=== PATIENT | female | born 1930 | race Caucasian/White ===

== ENCOUNTER 2016-12-22 10:25 | Observation (INO) | payer MEDICARE, BC ==
[~2016-12-22] VITALS: Ht 157.5 cm; Wt 60.4 kg
[~2016-12-22 10:25] MED LIST: ALDACTONE 25MG25 M1 PO; AMBIEN 5MG TABLE5 MG PO; APRESOLINE 25MG25 MG PO; ASPIRIN E.C. 8181 MG PO; ASTELIN137 MCG/AC NS; BACTRIM DS 8001 TAB; CALTRATE 600 +1 TAB PO; CENTRUM SILVER1 TA1 PO; CEPHALEXIN500 M1 PO; COUMADIN 2MG2 MG/TAB; COZAAR 50MG50 MG/TAB PO; COZAAR100 MG PO; COZAAR50 MG PO; CRANBERRY450 MG PO; DOXYCYCLINE 10100 MG PO; DULERA1 AR1 IH; EPA FISH OIL1000 MG PO; FISH OIL 500 M1 EAC1 PO; FLOVENT 110MCG7.9 GM IH; HCTZ 25MG TAB25 MG; HCTZ 25MG TAB25 MG PO; LIPITOR 10MG10 MG PO; LIPITOR20 MG PO; LUNESTA2 MG PO; MACROBID 1100 MG/CAP; MAXIPIME1 GM IV; MULTAQ400 MG PO; NAPROSYN500 MG PO; NITROQUICK0.4 MG SL; NITROSTAT0.4 MG/TAB SL; NORCO 325 MG-7.1 TAB PO; OMEGA 31000 MG PO; OMNICEF 300MG300 MG PO; PRESERVISION1 SGL PO; PRILOSEC 20MG20 MG PO; PROAIR HFA0.09 MG/AC IH; PULMICORT180 MCG/A1 IH; PULMICORT180 MCG/Ac IH; SYNTHROID0.088 MG PO; SYNTHROID0.088 MG/T PO; SYNTHROID0.1 MG/TAB PO; SYSTANE 0.4%-0.1 SOL OP; SYSTANE LUBRICAN5 ML OU; TAMBOCOR50 MG PO; TYLENOL 325MG325 MG PO; ULTRAM 50MG TAB50 MG PO; VENTOLIN0.09 MG IH; VIACTIV CALCIUM1 CTB PO; VITAMIN D1000 IU PO; VITAMIN D31000 IU PO; VITAMIN D5000 IU PO; XANAX .25M0.25 MG/TA PO
[2016-12-22 10:49] VITALS: BP 152/71; PULSE 86; TEMP 99.9
[2016-12-22] MEDS ORDERED: NORVASC 5MG5 MG/TAB PO (12:51)
[2016-12-22] MEDS ORDERED: CLARITIN 1010 MG/TAB PO (12:52)
[2016-12-22 13:57] LABS: BASO % 0.4 % (0.0-2.0); EOS % 0.1 % (0-4.0); GRAN # 8.6 (1.4-6.5); GRAN % 80.1 % (42.2-75.2); HEMATOCRIT 39.7 % (37.0-47.0); HEMOGLOBIN 13.5 g/dl (12.5-16.0); LYMPH # 0.8 (1.2-3.4); LYMPH % 7.8 % (20.0-51.0); MEAN CELL VOLUME 93 fl (80.0-100.0); MEAN CORPUSCULAR HEMOGLOBIN 32 pg (27.0-31.0); MEAN CORPUSCULAR HGB CONC 34 g/dl (33.0-37.0); MEAN PLATELET VOLUME 10.8 fl (7.4-10.4); MONO # 1.2 (0.1-0.6); MONO % 11.1 % (1.7-9.3); PLATELET COUNT 160 K/mm3 (130-400); RED BLOOD COUNT 4.27 M/mm3 (4.10-5.30); REDCELL DISTRIBUTION WIDTH-CV 14.3 % (11.5-14.5); WHITE BLOOD COUNT 10.7 K/mm3 (4.8-10.8)
[2016-12-22 14:26] LABS: CALCIUM 9.3 mg/dL (8.4-10.2); CREATININE, serum 0.85 mg/dL (0.52-1.25); POTASSIUM 4.2 mmol/L (3.4-5.0)
[2016-12-22 16:35] VITALS: BP 176/73; PULSE 97; TEMP 98.4
[2016-12-22 20:53] VITALS: BP 128/50; PULSE 82; TEMP 99.6
[2016-12-23 00:31] VITALS: BP 124/48; PULSE 81; TEMP 98.9
[2016-12-23 04:49] VITALS: BP 126/57; PULSE 85; TEMP 99
[2016-12-23 07:36] LABS: BASO % 0.4 % (0.0-2.0); EOS % 0.1 % (0-4.0); GRAN # 6.2 (1.4-6.5); LYMPH # 1.1 (1.2-3.4); LYMPH % 12.8 % (20.0-51.0); MEAN CELL VOLUME 95 fl (80.0-100.0); MEAN CORPUSCULAR HGB CONC 33 g/dl (33.0-37.0); MEAN PLATELET VOLUME 10.7 fl (7.4-10.4); MONO # 1.1 (0.1-0.6); MONO % 13.2 % (1.7-9.3); PLATELET COUNT 136 K/mm3 (130-400); RED BLOOD COUNT 3.71 M/mm3 (4.10-5.30); REDCELL DISTRIBUTION WIDTH-CV 14.4 % (11.5-14.5); WHITE BLOOD COUNT 8.4 K/mm3 (4.8-10.8)
[2016-12-23 07:37] VITALS: BP 138/50; PULSE 93; TEMP 98.8
[2016-12-23 07:55] LABS: HEMATOCRIT 35.1 % (37.0-47.0); HEMOGLOBIN 11.7 g/dl (12.5-16.0); MEAN CORPUSCULAR HEMOGLOBIN 32 pg (27.0-31.0)
[2016-12-23 07:58] LABS: CALCIUM 8.5 mg/dL (8.4-10.2); CREATININE, serum 0.76 mg/dL (0.52-1.25); POTASSIUM 4.3 mmol/L (3.4-5.0)
[2016-12-23] MEDS ORDERED: MAXIPIME2 GM IJ (11:20)
[2016-12-23 12:41] VITALS: BP 135/55; PULSE 85; TEMP 98.5
[2016-12-23 16:38] VITALS: BP 125/58; PULSE 82; TEMP 98.9
[2017-01-05] MEDS ORDERED: CALCIUM CARBON650 M2 PO (07:16)
== END 2016-12-23 18:30 | disposition home or self-care (01) ==
LOC: MEDICAL 10:25
PROVIDERS: Family Medicine; Nurse Practitioner Family
DX: B96.5 Pseudomonas (aeruginosa) (mallei) (pseudomallei) as the cause of diseases classified elsewhere (principal); N30.80 Other cystitis without hematuria; R33.9 Retention of urine, unspecified; J40 Bronchitis, not specified as acute or chronic; E87.1 Hypo-osmolality and hyponatremia; I27.2 Other secondary pulmonary hypertension; G47.33 Obstructive sleep apnea (adult) (pediatric); E03.9 Hypothyroidism, unspecified; F41.9 Anxiety disorder, unspecified; I48.91 Unspecified atrial fibrillation; J45.909 Unspecified asthma, uncomplicated; Z95.0 Presence of cardiac pacemaker; Z96.651 Presence of right artificial knee joint; Z90.710 Acquired absence of both cervix and uterus; Z90.722 Acquired absence of ovaries, bilateral; Z85.828 Personal history of other malignant neoplasm of skin
CPT/HCPCS: C1751; G0378; G0379; J0692; J1644; J1650; J2543; J7030; J7050

== ENCOUNTER 2017-01-02 17:53 | Outpatient (RCR) | payer MEDICARE, BC ==
[~2017-01-02 17:53] MED LIST changes: +CLARITIN 1010 MG/TAB PO; +MAXIPIME2 GM IJ; +NORVASC 5MG5 MG/TAB PO
[2017-01-05] MEDS ORDERED: CALCIUM CARBON650 M2 PO (07:16)
[2017-01-18] MEDS ORDERED: WELCHOL 625MG625 MG PO (18:28)
[2017-01-21] MEDS ORDERED: CIPRO 500MG TA500 MG PO ×2 (12:40)
[2017-01-21] MEDS ORDERED: CEFTIN 250250 MG/TAB PO (13:38)
[2017-01-21] MEDS ORDERED: MACROBID 1100 MG/CAP PO (13:38)
== END 2017-01-02 20:00 | disposition home or self-care (01) ==
LOC: COL.ER 20:00
DX: Z02.89 Encounter for other administrative examinations (principal)

== ENCOUNTER 2017-01-06 07:00 | Outpatient (RCR) | payer MEDICARE, BC ==
[2016-12-24 08:40] VITALS: BP 121/53; PULSE 76; TEMP 98.2
[2016-12-24 18:30] VITALS: BP 117/91; PULSE 81; TEMP 98.2
[2016-12-25 07:14] VITALS: BP 121/43; PULSE 73; TEMP 97.1
[2016-12-26 07:22] VITALS: BP 139/54; PULSE 72; TEMP 97.4
[2016-12-27 07:38] VITALS: BP 137/61; PULSE 78; TEMP 97.9
[2016-12-28 07:06] VITALS: BP 148/62; PULSE 86; TEMP 98.2
[2016-12-29 07:06] VITALS: BP 149/66; PULSE 77; TEMP 98.3
[2016-12-29 17:55] VITALS: BP 134/47; PULSE 86; TEMP 97.7
[2016-12-30 07:19] VITALS: BP 129/58; PULSE 79; TEMP 98.2
[2016-12-30 18:00] VITALS: BP 116/42; PULSE 70; TEMP 97.9
[2016-12-31 07:18] VITALS: BP 146/46; PULSE 72; TEMP 98
[2016-12-31 18:29] VITALS: BP 139/60; PULSE 84; TEMP 98
[2017-01-01 07:05] VITALS: BP 149/64; PULSE 81; TEMP 97.9
[2017-01-02 07:02] VITALS: BP 135/51; PULSE 81; TEMP 97.7
[2017-01-03 07:21] VITALS: BP 123/62; PULSE 74; TEMP 98.3
[2017-01-04 07:08] VITALS: BP 133/54; PULSE 77; TEMP 98.1
[2017-01-04 17:55] VITALS: BP 130/58; PULSE 86; TEMP 97.9
[2017-01-05 07:18] VITALS: BP 143/51; PULSE 74; TEMP 97.9
[2017-01-05 18:55] VITALS: BP 126/46; PULSE 67; TEMP 97.9
[~2017-01-06] VITALS: Ht 157.5 cm; Wt 62.0 kg
[~2017-01-06 07:00] MED LIST changes: +CALCIUM CARBON650 M2 PO
[2017-01-06 07:10] VITALS: BP 88/60; PULSE 69; TEMP 97.7
[2017-01-06 08:23] VITALS: BP 138/51; PULSE 65; TEMP 97.7
[2017-01-18] MEDS ORDERED: WELCHOL 625MG625 MG PO (18:28)
[2017-01-21] MEDS ORDERED: CIPRO 500MG TA500 MG PO ×2 (12:40)
[2017-01-21] MEDS ORDERED: MACROBID 1100 MG/CAP PO (13:38)
[2017-01-21] MEDS ORDERED: CEFTIN 250250 MG/TAB PO (13:38)
== END 2017-01-06 09:36 | disposition home or self-care (01) ==
LOC: EUO 07:00
DX: N30.90 Cystitis, unspecified without hematuria (principal); B96.5 Pseudomonas (aeruginosa) (mallei) (pseudomallei) as the cause of diseases classified elsewhere; R33.9 Retention of urine, unspecified
CPT/HCPCS: J0692; J1644

== ENCOUNTER 2017-02-12 20:53 | Outpatient (RCR) | payer MEDICARE, BC ==
[~2017-02-12] VITALS: Ht 157.5 cm; Wt 60.6 kg
[2017-02-12 13:04] VITALS: BP 152/67; PULSE 91; TEMP 98.1
[~2017-02-12 20:53] MED LIST changes: +ASPIRIN 81M81 MG/TA2 PO; +CEFTIN 250250 MG/TAB PO; +CIPRO 500MG TA500 MG PO; +DRISDOL50000 IU PO; +MACROBID 1100 MG/CAP PO; +PROBIOTIC FORMU1 CAP PO; -VITAMIN D31000 IU PO; +VITAMIN D3400 I1 PO; +WELCHOL 625MG625 MG PO
[2017-02-13] MEDS ORDERED: MAXIPIME1 GM IV (08:17)
[2017-02-13 08:21] VITALS: BP 129/53; PULSE 71; TEMP 98.2
[2017-02-14 08:00] VITALS: BP 153/60; PULSE 88; TEMP 98
[2017-02-15 07:13] VITALS: BP 138/53; PULSE 78; TEMP 98.1
[2017-02-16 07:21] VITALS: BP 115/42; PULSE 80; TEMP 98.3
[2017-02-16 18:56] VITALS: BP 110/41; PULSE 75; TEMP 98.2
[2017-02-17 07:04] VITALS: BP 150/54; PULSE 91; TEMP 97.9
[2017-02-17 18:04] VITALS: BP 99/76; PULSE 91; TEMP 98.3
[2017-02-18 07:06] VITALS: BP 144/54; PULSE 75; TEMP 97.8
[2017-02-22 08:39] VITALS: BP 151/62; PULSE 82; TEMP 97.9
== END 2017-02-22 08:47 | disposition home or self-care (01) ==
LOC: EUO 02-13 19:14
DX: N30.20 Other chronic cystitis without hematuria (principal)
CPT/HCPCS: C1751; C1894; J0692; J1644

== ENCOUNTER 2017-03-06 15:22 | Outpatient (RCR) | payer MEDICARE, BC ==
[~2017-03-06] VITALS: Ht 157.5 cm; Wt 61.0 kg
[~2017-03-06 15:22] MED LIST changes: +MASON NATURAL2000 IU PO; -SYNTHROID0.088 MG/T PO; -VITAMIN D3400 I1 PO
[2017-03-08 08:15] VITALS: BP 156/66; PULSE 80; TEMP 98
[2017-03-08 18:03] VITALS: BP 124/52; PULSE 76; TEMP 98
[2017-03-09 07:14] VITALS: BP 152/54; PULSE 83; TEMP 98.3
[2017-03-09 18:01] VITALS: BP 157/65; PULSE 87; TEMP 98
[2017-03-10 07:01] VITALS: BP 137/67; PULSE 84; TEMP 97.7
[2017-03-10 17:59] VITALS: BP 120/52; PULSE 81; TEMP 98.2
[2017-03-11 07:01] VITALS: BP 125/59; PULSE 81; TEMP 98
[2017-03-11 17:56] VITALS: BP 153/56; PULSE 85; TEMP 98.2
[2017-03-12 07:05] VITALS: BP 155/68; PULSE 83; TEMP 97.6
[2017-03-12 17:55] VITALS: BP 166/78; PULSE 82; TEMP 98
[2017-03-13 07:38] VITALS: BP 135/58; PULSE 88; TEMP 97.4
[2017-03-14 07:42] VITALS: BP 127/62; PULSE 79; TEMP 98
[2017-03-15 07:08] VITALS: BP 141/59; PULSE 87; TEMP 97.9
[2017-03-15 17:54] VITALS: BP 146/56; PULSE 84; TEMP 98
[2017-03-16 07:04] VITALS: BP 149/55; PULSE 79; TEMP 99
[2017-03-16 18:09] VITALS: BP 150/96; PULSE 96; TEMP 98.2
[2017-03-17 07:14] VITALS: BP 147/50; PULSE 75; TEMP 98.1
[2017-03-17 18:06] VITALS: BP 162/80; PULSE 83; TEMP 98
[2017-03-18 07:12] VITALS: BP 145/78; PULSE 88; TEMP 98
[2017-03-18 18:01] VITALS: BP 107/51; PULSE 86; TEMP 98
[2017-03-19 07:17] VITALS: BP 126/59; PULSE 79; TEMP 97.6
[2017-03-19 17:59] VITALS: BP 147/58; PULSE 66; TEMP 97.6
[2017-03-20 07:37] VITALS: BP 141/51; PULSE 78
[2017-03-21 07:39] VITALS: BP 135/67; PULSE 81; TEMP 98.3
[2017-03-26 15:09] VITALS: BP 130/55; PULSE 72; TEMP 98.8
[2017-03-30 13:13] VITALS: BP 132/43; PULSE 82; TEMP 97.8
== END 2017-04-02 10:45 | disposition home or self-care (01) ==
LOC: EUO 15:47
DX: Z45.2 Encounter for adjustment and management of vascular access device (principal); N30.01 Acute cystitis with hematuria; Z79.82 Long term (current) use of aspirin
CPT/HCPCS: C1751; J0692; J0696; J1644

== ENCOUNTER 2017-06-08 10:32 | Inpatient (IN) | payer MEDICARE, BC ==
[2017-06-08] VITALS (192 sets, daily range): BP systolic 81–155; BP diastolic 44–88; PULSE 77–84; TEMP 97–98.2; O2SAT 95–100
[~2017-06-08] VITALS: Ht 157.5 cm; Wt 55.8 kg
[2017-06-08] MEDS ORDERED: NORVASC 5MG5 MG/TAB PO (11:20)
[2017-06-08] MEDS ORDERED: THERACRAN650 MG PO (11:25)
[2017-06-08 19:34] LABS: BASO # 0.1 (0.0-0.2); BASO % 0.4 % (0.0-2.0); EOS # 0.1 (0.0-0.7); EOS % 0.9 % (0-4.0); GRAN # 8.9 (1.4-6.5); GRAN % 70.7 % (42.2-75.2); LYMPH # 2.3 (1.2-3.4); LYMPH % 18.5 % (20.0-51.0); MEAN CELL VOLUME 93 fl (80.0-100.0); MEAN CORPUSCULAR HGB CONC 34 g/dl (33.0-37.0); MONO # 1.1 (0.1-0.6); MONO % 9.1 % (1.7-9.3); PLATELET COUNT 174 K/mm3 (130-400); RED BLOOD COUNT 3.02 M/mm3 (4.10-5.30); REDCELL DISTRIBUTION WIDTH-CV 14.1 % (11.5-14.5)
[2017-06-08 19:35] LABS: HEMATOCRIT 28.1 % (37.0-47.0); HEMOGLOBIN 9.5 g/dl (12.5-16.0); MEAN CORPUSCULAR HEMOGLOBIN 31 pg (27.0-31.0)
[2017-06-08 19:44] LABS: CALCIUM 8.2 mg/dL (8.4-10.2); CREATININE, serum 0.83 mg/dL (0.52-1.25); POTASSIUM 3.7 mmol/L (3.4-5.0)
[2017-06-09] VITALS (1419 sets, daily range): BP systolic 95–147; BP diastolic 45–74; PULSE 68–86; TEMP 97–98.4; O2SAT 87–100
[2017-06-09 01:14] LABS: HEMATOCRIT 28.8 % (37.0-47.0); HEMOGLOBIN 9.9 g/dl (12.5-16.0)
[2017-06-09 05:24] LABS: BASO % 0.2 % (0.0-2.0); EOS % 0.1 % (0-4.0); GRAN # 7.9 (1.4-6.5); GRAN % 78.8 % (42.2-75.2); HEMATOCRIT 31.6 % (37.0-47.0); HEMOGLOBIN 10.8 g/dl (12.5-16.0); LYMPH # 1.3 (1.2-3.4); LYMPH % 13.2 % (20.0-51.0); MEAN CELL VOLUME 91 fl (80.0-100.0); MEAN CORPUSCULAR HEMOGLOBIN 31 pg (27.0-31.0); MEAN CORPUSCULAR HGB CONC 34 g/dl (33.0-37.0); MEAN PLATELET VOLUME 10.9 fl (7.4-10.4); MONO # 0.7 (0.1-0.6); MONO % 7.3 % (1.7-9.3); PLATELET COUNT 132 K/mm3 (130-400); RED BLOOD COUNT 3.46 M/mm3 (4.10-5.30); REDCELL DISTRIBUTION WIDTH-CV 14.4 % (11.5-14.5)
[2017-06-09 05:34] LABS: CALCIUM 7.8 mg/dL (8.4-10.2); CREATININE, serum 0.72 mg/dL (0.52-1.25); POTASSIUM 4.4 mmol/L (3.4-5.0)
[2017-06-09 18:09] LABS: HEMATOCRIT 26.6 % (37.0-47.0); HEMOGLOBIN 9.1 g/dl (12.5-16.0); PROTHROMBIN TIME 11.7 SECONDS (9.7-12.8)
[2017-06-10] VITALS (786 sets, daily range): BP systolic 106–157; BP diastolic 45–66; PULSE 59–82; TEMP 97–98.6; O2SAT 74–100
[2017-06-10 00:15] LABS: HEMOGLOBIN 8.4 g/dl (12.5-16.0)
[2017-06-10 05:41] LABS: CALCIUM 7.7 mg/dL (8.4-10.2); CREATININE, serum 0.72 mg/dL (0.52-1.25)
[2017-06-10 07:49] LABS: BASO % 0.4 % (0.0-2.0); EOS # 0.2 (0.0-0.7); EOS % 3.1 % (0-4.0); GRAN # 4.7 (1.4-6.5); GRAN % 64.6 % (42.2-75.2); LYMPH # 1.6 (1.2-3.4); LYMPH % 22.1 % (20.0-51.0); MEAN CELL VOLUME 93 fl (80.0-100.0); MEAN CORPUSCULAR HGB CONC 33 g/dl (33.0-37.0); MEAN PLATELET VOLUME 11.9 fl (7.4-10.4); MONO # 0.7 (0.1-0.6); MONO % 9.3 % (1.7-9.3); PLATELET COUNT 109 K/mm3 (130-400); RED BLOOD COUNT 2.59 M/mm3 (4.10-5.30); REDCELL DISTRIBUTION WIDTH-CV 15.3 % (11.5-14.5)
[2017-06-10 07:55] LABS: MEAN CORPUSCULAR HEMOGLOBIN 31 pg (27.0-31.0)
[2017-06-10 15:13] LABS: HEMATOCRIT 25.3 % (37.0-47.0); HEMOGLOBIN 8.6 g/dl (12.5-16.0)
[2017-06-11] VITALS (8 sets, daily range): BP systolic 109–165; BP diastolic 41–68; PULSE 72–85; TEMP 97.7–98.5
[2017-06-11 06:34] LABS: BASO % 0.4 % (0.0-2.0); EOS # 0.4 (0.0-0.7); EOS % 5.7 % (0-4.0); GRAN # 4.2 (1.4-6.5); GRAN % 60.2 % (42.2-75.2); LYMPH # 1.5 (1.2-3.4); LYMPH % 22.2 % (20.0-51.0); MEAN CELL VOLUME 94 fl (80.0-100.0); MEAN CORPUSCULAR HGB CONC 34 g/dl (33.0-37.0); MEAN PLATELET VOLUME 11.4 fl (7.4-10.4); MONO # 0.8 (0.1-0.6); MONO % 10.9 % (1.7-9.3); PLATELET COUNT 118 K/mm3 (130-400); REDCELL DISTRIBUTION WIDTH-CV 15.1 % (11.5-14.5)
[2017-06-11 06:39] LABS: HEMATOCRIT 25.3 % (37.0-47.0); HEMOGLOBIN 8.5 g/dl (12.5-16.0); MEAN CORPUSCULAR HEMOGLOBIN 31 pg (27.0-31.0)
[2017-06-11 06:47] LABS: CALCIUM 8.2 mg/dL (8.4-10.2); CREATININE, serum 0.72 mg/dL (0.52-1.25); POTASSIUM 3.8 mmol/L (3.4-5.0)
[2017-06-12 06:06] VITALS: BP 147/59; PULSE 82
[2017-06-12 07:08] LABS: BASO % 0.3 % (0.0-2.0); EOS # 0.3 (0.0-0.7); GRAN # 4.6 (1.4-6.5); GRAN % 67.6 % (42.2-75.2); LYMPH # 1.2 (1.2-3.4); LYMPH % 16.9 % (20.0-51.0); MEAN CELL VOLUME 94 fl (80.0-100.0); MEAN CORPUSCULAR HGB CONC 33 g/dl (33.0-37.0); MEAN PLATELET VOLUME 11.5 fl (7.4-10.4); MONO # 0.7 (0.1-0.6); MONO % 9.9 % (1.7-9.3); PLATELET COUNT 129 K/mm3 (130-400); RED BLOOD COUNT 2.57 M/mm3 (4.10-5.30); REDCELL DISTRIBUTION WIDTH-CV 14.9 % (11.5-14.5)
[2017-06-12 07:09] LABS: HEMATOCRIT 24.1 % (37.0-47.0); MEAN CORPUSCULAR HEMOGLOBIN 31 pg (27.0-31.0)
[2017-06-12 07:31] LABS: CALCIUM 8.2 mg/dL (8.4-10.2); CREATININE, serum 0.7 mg/dL (0.52-1.25); POTASSIUM 3.7 mmol/L (3.4-5.0)
[2017-06-12 10:00] VITALS: BP 134/48; PULSE 75; TEMP 98.3
[2017-06-12 13:40] VITALS: BP 125/43; PULSE 84; TEMP 98.5
[2017-06-12 17:32] VITALS: BP 127/52; PULSE 82; TEMP 98.5
[2017-06-12 20:00] VITALS: BP 110/56; PULSE 78; TEMP 98.6
[2017-06-13 00:38] VITALS: BP 129/52; PULSE 77; TEMP 97.9
[2017-06-13 05:00] VITALS: BP 118/61; PULSE 72; TEMP 98
[2017-06-13 07:09] LABS: BASO % 0.3 % (0.0-2.0); EOS # 0.4 (0.0-0.7); EOS % 6.6 % (0-4.0); GRAN # 3.8 (1.4-6.5); GRAN % 61.6 % (42.2-75.2); LYMPH # 1.4 (1.2-3.4); LYMPH % 22.7 % (20.0-51.0); MEAN CELL VOLUME 95 fl (80.0-100.0); MEAN CORPUSCULAR HGB CONC 34 g/dl (33.0-37.0); MEAN PLATELET VOLUME 11.4 fl (7.4-10.4); MONO # 0.5 (0.1-0.6); MONO % 8.5 % (1.7-9.3); PLATELET COUNT 138 K/mm3 (130-400); RED BLOOD COUNT 2.36 M/mm3 (4.10-5.30); REDCELL DISTRIBUTION WIDTH-CV 15.2 % (11.5-14.5)
[2017-06-13 07:11] LABS: HEMATOCRIT 22.4 % (37.0-47.0); HEMOGLOBIN 7.5 g/dl (12.5-16.0); MEAN CORPUSCULAR HEMOGLOBIN 32 pg (27.0-31.0)
[2017-06-13 07:17] LABS: CALCIUM 8.3 mg/dL (8.4-10.2); CREATININE, serum 0.75 mg/dL (0.52-1.25)
[2017-06-13 09:26] VITALS: BP 149/58; PULSE 79; TEMP 97.6
[2017-06-13 13:49] VITALS: BP 149/56; PULSE 80; TEMP 98
[2017-06-13 16:49] LABS: BASO % 0.4 % (0.0-2.0); EOS # 0.4 (0.0-0.7); EOS % 4.6 % (0-4.0); GRAN # 5.3 (1.4-6.5); GRAN % 69.3 % (42.2-75.2); LYMPH # 1.4 (1.2-3.4); LYMPH % 17.8 % (20.0-51.0); MEAN CELL VOLUME 94 fl (80.0-100.0); MEAN CORPUSCULAR HGB CONC 33 g/dl (33.0-37.0); MEAN PLATELET VOLUME 10.7 fl (7.4-10.4); MONO # 0.6 (0.1-0.6); MONO % 7.6 % (1.7-9.3); PLATELET COUNT 171 K/mm3 (130-400); RED BLOOD COUNT 2.76 M/mm3 (4.10-5.30)
[2017-06-13 16:50] LABS: HEMATOCRIT 25.9 % (37.0-47.0); HEMOGLOBIN 8.5 g/dl (12.5-16.0); MEAN CORPUSCULAR HEMOGLOBIN 31 pg (27.0-31.0)
[2017-06-13 17:22] VITALS: BP 145/58; PULSE 73; TEMP 98
[2017-06-13 22:47] VITALS: BP 133/48; PULSE 73; TEMP 97.8
[2017-06-14] VITALS (12 sets, daily range): BP systolic 108–148; BP diastolic 40–57; PULSE 49–91; TEMP 98.1–98.6
[2017-06-14 06:45] LABS: BASO % 0.4 % (0.0-2.0); EOS # 0.4 (0.0-0.7); EOS % 6.1 % (0-4.0); GRAN # 4.2 (1.4-6.5); GRAN % 62.2 % (42.2-75.2); LYMPH # 1.4 (1.2-3.4); LYMPH % 20.5 % (20.0-51.0); MEAN CELL VOLUME 95 fl (80.0-100.0); MEAN CORPUSCULAR HGB CONC 33 g/dl (33.0-37.0); MEAN PLATELET VOLUME 11.3 fl (7.4-10.4); MONO # 0.7 (0.1-0.6); MONO % 10.2 % (1.7-9.3); PLATELET COUNT 174 K/mm3 (130-400); RED BLOOD COUNT 2.61 M/mm3 (4.10-5.30)
[2017-06-14 06:53] LABS: HEMATOCRIT 24.7 % (37.0-47.0); HEMOGLOBIN 8.1 g/dl (12.5-16.0); MEAN CORPUSCULAR HEMOGLOBIN 31 pg (27.0-31.0)
[2017-06-14 06:54] LABS: CALCIUM 8.5 mg/dL (8.4-10.2); CREATININE, serum 0.79 mg/dL (0.52-1.25)
[2017-06-15 05:11] VITALS: BP 113/50; PULSE 75; TEMP 98.5
[2017-06-15 06:26] LABS: BASO % 0.5 % (0.0-2.0); EOS # 0.4 (0.0-0.7); EOS % 5.8 % (0-4.0); GRAN % 64.5 % (42.2-75.2); LYMPH # 1.3 (1.2-3.4); LYMPH % 20.5 % (20.0-51.0); MEAN CELL VOLUME 95 fl (80.0-100.0); MEAN CORPUSCULAR HGB CONC 33 g/dl (33.0-37.0); MONO # 0.5 (0.1-0.6); MONO % 8.2 % (1.7-9.3); PLATELET COUNT 160 K/mm3 (130-400)
[2017-06-15 06:29] LABS: HEMATOCRIT 22.9 % (37.0-47.0); HEMOGLOBIN 7.5 g/dl (12.5-16.0); MEAN CORPUSCULAR HEMOGLOBIN 31 pg (27.0-31.0)
[2017-06-15 06:33] LABS: CALCIUM 8.2 mg/dL (8.4-10.2); CREATININE, serum 0.77 mg/dL (0.52-1.25); POTASSIUM 3.9 mmol/L (3.4-5.0)
[2017-06-15 09:26] VITALS: BP 133/55; PULSE 81; TEMP 97.8
[2017-06-15 14:03] VITALS: BP 110/36; PULSE 84; TEMP 97.8
[2017-06-15 17:05] VITALS: BP 110/52; PULSE 87; TEMP 98.4
[2017-06-15 21:48] VITALS: BP 135/41; PULSE 85; TEMP 98.6
[2017-06-16 02:54] VITALS: BP 141/51; PULSE 73; TEMP 98.3
[2017-06-16 06:05] VITALS: BP 116/50; PULSE 72; TEMP 98
[2017-06-16 06:41] LABS: BASO % 0.4 % (0.0-2.0); EOS # 0.4 (0.0-0.7); EOS % 6.7 % (0-4.0); GRAN # 3.3 (1.4-6.5); GRAN % 61.6 % (42.2-75.2); LYMPH # 1.2 (1.2-3.4); MEAN CELL VOLUME 96 fl (80.0-100.0); MEAN CORPUSCULAR HGB CONC 33 g/dl (33.0-37.0); MEAN PLATELET VOLUME 10.6 fl (7.4-10.4); MONO # 0.5 (0.1-0.6); MONO % 8.7 % (1.7-9.3); PLATELET COUNT 213 K/mm3 (130-400); RED BLOOD COUNT 2.52 M/mm3 (4.10-5.30); REDCELL DISTRIBUTION WIDTH-CV 15.2 % (11.5-14.5)
[2017-06-16 06:44] LABS: CALCIUM 8.6 mg/dL (8.4-10.2); CREATININE, serum 0.83 mg/dL (0.52-1.25); POTASSIUM 3.9 mmol/L (3.4-5.0)
[2017-06-16 07:00] LABS: HEMATOCRIT 24.1 % (37.0-47.0); HEMOGLOBIN 7.9 g/dl (12.5-16.0); MEAN CORPUSCULAR HEMOGLOBIN 31 pg (27.0-31.0)
[2017-06-16 10:00] VITALS: BP 142/67; PULSE 77; TEMP 98.2
[2017-06-16] MEDS ORDERED: FERROUS SU325 MG/TAB PO (10:45)
[2017-06-16] MEDS ORDERED: DULCOLAX STOOL100 MG PO (10:47)
== END 2017-06-16 13:00 | disposition home or self-care (01) | DRG 669 ==
LOC: MEDICAL 10:32 → ICU 20:17 → SURG 20:17 → ICU 20:18 → SURG 06-10 14:01
PROVIDERS: Family Medicine; Nurse Practitioner Family; Physician Assistant; Urology
PROC: 0TCB8ZZ Extirpation of Matter from Bladder, Via Natural or Artificial Opening Endoscopic (ICD-10-PCS; 2017-06-14)
PROC: 0TBB8ZX Excision of Bladder, Via Natural or Artificial Opening Endoscopic, Diagnostic (ICD-10-PCS; principal; 2017-06-14 16:30)
DX: N32.89 Other specified disorders of bladder (principal); D62 Acute posthemorrhagic anemia; E44.0 Moderate protein-calorie malnutrition; N32.3 Diverticulum of bladder; Z95.0 Presence of cardiac pacemaker; I48.0 Paroxysmal atrial fibrillation; N30.21 Other chronic cystitis with hematuria; I10 Essential (primary) hypertension; I27.20 Pulmonary hypertension, unspecified; J45.909 Unspecified asthma, uncomplicated; R33.9 Retention of urine, unspecified
CPT/HCPCS: 99223; 99231-AI; 99232-AI; 99233-AI; A4314; C1751; J0690; J0696; J1956; J2405; J2704; J2916; J3010; J3480; J7030; P9016

== ENCOUNTER 2017-08-14 08:00 | Outpatient (RCR) | payer MEDICARE, BC ==
[~2017-08-14] VITALS: Ht 157.5 cm; Wt 54.0 kg
[~2017-08-14 08:00] MED LIST changes: +DULCOLAX STOOL100 MG PO; +FERROUS SU325 MG/TAB PO; +THERACRAN650 MG PO
[2017-08-14 08:57] VITALS: BP 179/67; PULSE 72; TEMP 98.3
[2017-08-15 08:16] VITALS: BP 160/79; PULSE 79; TEMP 98.2
[2017-08-16 07:58] VITALS: BP 111/92; PULSE 76; TEMP 98.2
[2017-08-16 18:04] VITALS: BP 157/70; PULSE 77; TEMP 98.1
[2017-08-17] MEDS ORDERED: CRANBERRY450 MG PO (10:11)
== END 2017-08-16 18:30 | disposition home or self-care (01) ==
LOC: EUO 08:02
DX: N39.0 Urinary tract infection, site not specified (principal)
CPT/HCPCS: J0692

== ENCOUNTER → 2017-08-26 | Outpatient (CLI) | payer MEDICARE, BC ==
[~2017-08-26] MED LIST changes: +CEFTIN500 MG PO
== END ==
LOC: COL.RAD 11:04
DX: N32.3 Diverticulum of bladder (principal)
CPT/HCPCS: Q9967

== ENCOUNTER → 2017-11-10 | Outpatient (CLI) | payer MEDICARE, BC | LOC: COL.RAD 12:09 | DX: N28.89 Other specified disorders of kidney and ureter (principal); N28.1 Cyst of kidney, acquired; N32.3 Diverticulum of bladder; Z98.890 Other specified postprocedural states ==

== ENCOUNTER → 2018-11-16 | Outpatient (CLI) | payer MEDICARE, BC | LOC: COL.VAS 13:18 | DX: I65.23 Occlusion and stenosis of bilateral carotid arteries (principal) ==

== ENCOUNTER 2019-05-07 11:40 | Emergency (ER) | payer MEDICARE, BC ==
[~2019-05-07] VITALS: Ht 157.5 cm; Wt 50.0 kg
[~2019-05-07 11:40] MED LIST changes: +BETAPACE 80MG80 MG PO; +CRANBERRY 100 M1 SGL; +ELIQUIS 2.5 PO; +KRILL OIL 5001 EACH PO; +NORVASC2.5 MG PO; +PRESERVISIONLUT PO
[2019-05-07 12:08] VITALS: TEMP 98.5
[2019-05-07 12:47] LABS: COLLECTION METHOD CATHETER
[2019-05-07 13:26] LABS: PH 7 (5-8); SQUAMOUS EPITHELIAL None Seen /hpf; URINE APPEARANCE Cloudy; URINE BACTERIA Occasional /hpf; URINE BILIRUBIN Negative (NEGATIVE); URINE BLOOD Negative (NEGATIVE); URINE COLOR Yellow; URINE GLUCOSE Negative (NEGATIVE); URINE KETONE Negative (NEGATIVE); URINE LEUKOCYTE ESTERASE 3+ (NEGATIVE); URINE NITRATE Positive (NEGATIVE); URINE PROTEIN(semi-quant) 1+ (NEGATIVE); URINE RBC 0-2 /hpf; URINE UROBILINOGEN Negative (NEGATIVE)
[2019-05-07] MEDS ORDERED: NORVASC2.5 MG PO (15:26)
[2019-05-07] MEDS ORDERED: MACROBID 1100 MG/CAP PO (15:27)
[2019-05-07 15:48] VITALS: BP 177/88; PULSE 70
[2019-05-09] MEDS ORDERED: AMOXICILLIN 8751 TAB PO (06:51)
== END 2019-05-07 15:48 | disposition home or self-care (01) ==
LOC: COL.ER 11:40
PROVIDERS: Emergency Medicine
DX: I10 Essential (primary) hypertension (principal); N39.0 Urinary tract infection, site not specified; Z79.01 Long term (current) use of anticoagulants; Z79.51 Long term (current) use of inhaled steroids